=== PATIENT | female | born 1975 | race Caucasian/White ===

== ENCOUNTER 2017-01-05 10:47 | Outpatient (CLI) | payer OTHER ==
--- NOTE | 2017-01-08 15:37 | Mammography Report ---
DIGITAL SCREENING MAMMOGRAM: 01/05/2017 CLINICAL INDICATION: A 41-year-old nulliparous patient, for screening. COMPARISON: 07/2013. TECHNIQUE: Routine CC and MLO projections were obtained of the breasts. FINDINGS: Scattered fibroglandular tissue is present within the breasts. There are no dominant jose s, suspicious microcalcifications, or secondary signs of malignancy. In comparison to the previous st udies, there are no significant changes. ASSESSMENT: NO MAMMOGRAPHIC EVIDENCE OF MALIGNANCY. NO SIGNIFICANT INTERVAL CHANGES. RECOMMENDATION: Screening mammography is recommended annually. BIRADS category 1 - negative. STANDARD QUALIFYING STATEMENTS 1. This examination was reviewed with the aid of Computed-Aided Detection (CAD). 2. A negative or benign imaging report should not delay biopsy if clinically suspicious findings are present. Consider surgical consultation if warranted. More than 5% of cancers are not identified by i maging. 3. Dense breasts may obscure an underlying neoplasm. JOB #: [id number] EXT JOB #:[id number]
== END 2017-01-05 10:48 | disposition home or self-care (01) ==
LOC: DI.S 10:47
PROVIDERS: ATTEND Physician Assistant
DX: Z12.31 Encounter for screening mammogram for malignant neoplasm of breast (principal)
CPT/HCPCS: 77067

== ENCOUNTER 2017-01-29 10:50 | Outpatient (CLI) | payer OTHER | END 2017-01-29 10:51 | disposition home or self-care (01) | LOC: SC 10:50 | PROVIDERS: ATTEND Internal Medicine Pulmonary Disease | DX: G47.30 Sleep apnea, unspecified (principal); G47.10 Hypersomnia, unspecified; G47.8 Other sleep disorders; R06.83 Snoring | CPT/HCPCS: 99203; 99212 ==

== ENCOUNTER 2017-03-30 20:57 | Outpatient (CLI) | payer OTHER | END 2017-03-30 20:58 | disposition home or self-care (01) | LOC: SC 20:57 | PROVIDERS: ATTEND Internal Medicine Pulmonary Disease | DX: G47.33 Obstructive sleep apnea (adult) (pediatric) (principal) | CPT/HCPCS: 95810 ==

== ENCOUNTER 2017-05-14 11:09 | Outpatient (CLI) | payer OTHER | END 2017-05-14 11:10 | disposition home or self-care (01) | LOC: SC 11:09 | PROVIDERS: ATTEND Nurse Practitioner Family | DX: G47.33 Obstructive sleep apnea (adult) (pediatric) (principal) | CPT/HCPCS: 99212; 99214 ==

== ENCOUNTER 2017-06-05 12:49 | Outpatient (CLI) | payer OTHER ==
--- NOTE | 2017-06-05 16:01 | CT Report ---
CT SINUSES WITHOUT CONTRAST: 06/05/2017 CLINICAL INDICATION: Pain, pressure. TECHNIQUE: Axial CT images of the paranasal sinuses were obtained without intravenous contrast, following which sagittal and coronal reconstructions were performed. COMPARISON: No previous CT is available for comparison. FINDINGS: There is left worse than right maxillary mucosal thickening, with occlusion of the left ostiomeatal unit with soft tissue. No air-fluid levels are seen. The nasal septum is midline. The ethmoid air cells, sphenoid sinus, and frontal sinuses are unremarkable. No osseous destruction is seen. The visualized intraorbital contents are unremarkable. IMPRESSION: LEFT WORSE THAN RIGHT MAXILLARY CHRONIC SINUS DISEASE, WITH OCCLUSION OF THE LEFT OSTIOMEATAL UNIT. CT DOSE REDUCTION STATEMENT In accordance with CT protocol optimization, one or more of the following dose reduction techniques were utilized for this exam: automated exposure control, adjustment of mA and/or KV based on patient size, or use of iterative reconstructive technique. TD: 06/05/2017 16:00
== END 2017-06-05 12:50 | disposition home or self-care (01) ==
LOC: DI 12:49
PROVIDERS: ATTEND Physician Assistant
DX: J32.0 Chronic maxillary sinusitis (principal)
CPT/HCPCS: 70486

== ENCOUNTER 2017-07-30 11:11 | Outpatient (CLI) | payer OTHER | END 2017-07-30 11:12 | disposition home or self-care (01) | LOC: SC 11:11 | PROVIDERS: ATTEND Nurse Practitioner Family | DX: G47.33 Obstructive sleep apnea (adult) (pediatric) (principal) | CPT/HCPCS: 99212; 99214 ==

== ENCOUNTER 2017-09-17 11:18 | Outpatient (CLI) | payer OTHER | END 2017-09-17 11:19 | disposition home or self-care (01) | LOC: SC 11:18 | PROVIDERS: ATTEND Nurse Practitioner Family | DX: G47.33 Obstructive sleep apnea (adult) (pediatric) (principal) | CPT/HCPCS: 99212; 99214 ==

== ENCOUNTER 2023-02-28 07:54 | Outpatient (CLI) | payer OTHER ==
--- NOTE | 2023-03-01 10:57 | Mammography Report ---
BILATERAL DIGITAL SCREENING MAMMOGRAM 3D/2D: 02/28/2023 CLINICAL: Routine screening. Family history of breast cancer. Comparison is made to exams dated: 01/05/2017 mammogram and 07/16/2013 mammogram - [facility]. There are scattered areas of fibroglandular density in both breasts (category b / 25%-50% glandular t issue). There are multiple round and oval masses with circumscribed margins seen in both breasts. No significant masses, calcifications, or other findings are seen in either breast. IMPRESSION: BENIGN Multiple, bilateral, round and oval benign appearing masses. No mammographic evidence of malignancy. A 1 year screening mammogram is recommended. Based on the Tyrer Cuzick model (a risk assessment model) the patients lifetime risk is 13.5% and he r 10 year risk is 3.2%. According to the ACR, ACS, and NCCN guidelines, an annual breast MRI exam heu ng with mammogram is recommended if the patients lifetime risk is 20% or greater. This exam was interpreted at Station ID: [id number]. NOTE: For mammograms, a report in lay terms will be sent to the patient. Approximately 15% of breast malignancies will not be visualized mammographically. In the management of a palpable breast mass, a negative mammogram must not discourage biopsy of a clinically suspicious lesion. Electronically Signed By: Symone Molina M.D., PH.D eb/:02/28/2023 15:57:59 ACR BI-RADS Category 2: Benign Finding(s) 3342F PARENCHYMAL PATTERN: (A) - The breast(s) demonstrate(s) scattered fibroglandular densities. BI-RADS CATEGORY: (2) - 2 Mammogram [id number] 1 year screening LATERALITY: (B)
== END 2023-02-28 07:55 | disposition home or self-care (01) ==
LOC: DI.S 07:54
PROVIDERS: ATTEND Registered Nurse
DX: Z12.31 Encounter for screening mammogram for malignant neoplasm of breast (principal); Z80.3 Family history of malignant neoplasm of breast; R92.323 Mammographic fibroglandular density, bilateral breasts